=== PATIENT | female | born 1995 | race Caucasian/White ===

== ENCOUNTER 2019-11-14 20:10 | Emergency (ER) | payer SELFPAY ==
[~2019-11-14] VITALS: Ht 149.9 cm; Wt 68.2 kg
[2019-11-14 20:31] VITALS: BP 118/89; TEMP 97.1
[2019-11-14 23:04] VITALS: PULSE 72
== END 2019-11-14 23:04 | disposition home or self-care (01) ==
LOC: COL.ER 20:10
DX: E86.0 Dehydration (principal)
CPT/HCPCS: J1885; J2405; J7030

== ENCOUNTER 2020-07-24 12:29 | Emergency (ER) | payer BC ==
[~2020-07-24] VITALS: Ht 149.9 cm; Wt 65.0 kg
[2020-07-24 12:35] VITALS: BP 117/62; TEMP 98.1
[2020-07-24 13:35] VITALS: PULSE 99
== END 2020-07-24 13:35 | disposition home or self-care (01) ==
LOC: COL.ER 12:29
DX: S61.211A Laceration without foreign body of left index finger without damage to nail, initial encounter (principal); Z88.1 Allergy status to other antibiotic agents; W26.9XXA Contact with unspecified sharp object(s), initial encounter; Y93.89 Activity, other specified

== ENCOUNTER → 2020-08-02 | Outpatient (CLI) | payer BC ==
[2020-08-02 13:41] VITALS: BP 93/64; PULSE 128; TEMP 97.3
== END ==
LOC: COL.ER 13:35
DX: Z48.02 Encounter for removal of sutures (principal)